=== PATIENT | male | born 1965 | race Caucasian/White ===

== ENCOUNTER → 2022-11-01 08:53 | Outpatient (BNVA) | payer BC, SELFPAY | PROVIDERS: PCP Family Medicine; Visit Provider Family Medicine | DX: E11.9 Type 2 diabetes mellitus without complications (principal); Z12.11 Encounter for screening for malignant neoplasm of colon; Z12.12 Encounter for screening for malignant neoplasm of rectum; Z68.38 Body mass index [BMI] 38.0-38.9, adult; E78.5 Hyperlipidemia, unspecified | CPT/HCPCS: 80053; 80061; 83036; 84439; 84443; 85025 ==

== ENCOUNTER 2023-02-06 05:41 | Day surgery (SDC) | payer BC, SELFPAY ==
[2023-02-04 12:36] VITALS: BMI 38.4
[2023-02-06 06:17] VITALS: BP 122/87; PULSE 93; RESP 16; TEMP 35.9; O2SAT 97; BMI 38.4
[2023-02-06 06:28] LABS: Glucose Point of Care 277 mg/dL (70-110)
--- NOTE | 2023-02-06 06:36 | ANES.PREANE2 ---
Pre-Anesthetic Assessment Height/Weight: Height 1.88 m Weight 135.624 kg Temp Pulse Resp BP Pulse Ox O2 Del Method 96.7 F L 93 16 122/87 97 Room Air 02/06/23 06:17 02/06/23 06:17 02/06/23 06:17 02/06/23 06:17 02/06/23 06:17 02/06/23 06:17 Operation Date: 02/06/23 07:00 Proposed Procedures p Colonoscopy 46445,Z12.11(Not Applicable) - Jesus Hernández DO Familial anesthetic complications: None Was Beta Anny taken within 24 hours: N/A Was Clonidine taken within 24 hours: N/A Last intake: Intake Last Liquid Date 02/05/23 Last Liquid Time 22:00 Last Solid Date 02/04/23 Last Solid Time 18:00 Social No alcohol and No tobacco Exam alert, oriented x 3, clear to auscultation bilaterally and regular rate & rhythm Airway Submandibular: within normal limits Cervical ROM: within normal limits Mallampati: Class I Dentition: full History/ROS No significant complaints Pulmonary None reported CV/HEM Peripheral Vascular Disease None reported Hepatic None reported GI None reported Metabolic Diabetes Mellitus, Hyperlipidemia and Morbid Obesity [facility] [place] None reported Neuropsych Neuropathy (Feet/legs) Anesthetic Plan ASA status: 3 Anesthesia: MAC Risk of > 500 ml blood loss (7ml/kg in children): No Medications/Allergies Home Medications Medication Instructions Recorded Confirmed Last Taken Type anrueost-rx-jxvok 300 mcg-K 60 1 tab PO DAILY 11/01/22 02/06/23 02/05/23 History mcg-lycop 600 mcg-lutein 300 mcg tablet ([facility]) aspirin 81 mg tablet,delayed 81 mg PO DAILY #90 tabs 11/02/22 02/04/23 02/01/23 Rx release (Adult Aspirin Regimen) atorvastatin 20 mg tablet 20 mg PO DAILY #90 tabs 11/02/22 02/06/23 02/05/23 Rx dapagliflozin propanediol 10 mg 10 mg PO DAILY #90 tabs 11/02/22 02/06/23 02/05/23 Rx tablet (Farxiga) flash glucose scanning reader #1 ea 11/02/22 02/04/23 Unknown Rx (FreeStyle Almaz 2 [place]) flash glucose sensor (Club 42cmStyle #1 ea 11/02/22 02/04/23 Unknown Rx Almaz 2 Sensor kit) gemfibrozil 600 mg tablet 600 mg PO BID #90 tabs 11/02/22 02/06/23 02/05/23 Rx metformin 1,000 mg tablet 1,000 mg PO BID #180 tabs 11/02/22 02/06/23 02/05/23 Rx pioglitazone 30 mg tablet 30 mg PO DAILY #90 tabs 11/02/22 02/06/23 02/05/23 Rx sitagliptin phosphate 100 mg 100 mg PO DAILY #90 tabs 11/02/22 02/06/23 02/05/23 Rx tablet (Januvia) glipizide 10 mg tablet 20 mg PO .DAILY IN AM 02/04/23 02/06/23 02/05/23 History glipizide 5 mg tablet 5 mg PO BEDTIME 02/04/23 02/06/23 02/05/23 History Allergies Allergy/AdvReac Type Severity Reaction Status Date / Time azithromycin Allergy Unknown Verified 12/06/22 07:41 bee venom protein (honey bee) Allergy ALGY-Anaphy Verified 02/04/23 12:21 laxis clarithromycin [From Biaxin] Allergy Unknown Verified 12/06/22 07:41 diphenhydramine Allergy Unknown Verified 12/06/22 07:41 [From Benadryl] Penicillins Allergy Unknown Verified 12/06/22 07:41 shell fish Allergy Unknown Uncoded 12/06/22 07:41 PENDING SALE TO [facility] Anesthesia Medical History Bilateral tinnitus Degenerative disc disease Diabetes Hyperlipidemia Neuropathy Surgical History History of knee surgery 1985, right knee Family History Other Hyperlipidemia Denies family history of Diabetes CAD (coronary artery disease) Clotting disorder Dementia Psychiatric illness Chronic kidney disease (CKD) Anesthesia complication Bleeding disorder Lung disease Cancer Hypertension Stroke Social History Smoking and tobacco status: never smoked Alcohol intake: former Substance/Drug Use: never Lives independently: Yes Marital status: Current occupational status: retired Special antonia needs: No Agree to transfusion: Yes Data Anesthesia Cardiac Studies: No Data to Display
--- NOTE | 2023-02-06 06:59 | PM.HP ---
Providers/Chief Complaint Primary Care Provider: Vinod Nelson MD Chief Complaint: Z12.11 History of Present Illness Javed Pradhan is a 57 year old male Here for his first colon cancer screening. He denies any family history of colon cancer, abdominal pain, nausea, emesis, diarrhea, constipation, hematochezia and/or melena Review of Systems General: Reports: 10 or more systems reviewed and unremarkable except in HPI and below Medications/Allergies Home Medications Medication Instructions Recorded Confirmed Last Taken Type podrnrqj-bt-aiyzx 300 mcg-K 60 1 tab PO DAILY 11/01/22 02/06/23 02/05/23 History mcg-lycop 600 mcg-lutein 300 mcg tablet ([facility]) aspirin 81 mg tablet,delayed 81 mg PO DAILY #90 tabs 11/02/22 02/04/23 02/01/23 Rx release (Adult Aspirin Regimen) atorvastatin 20 mg tablet 20 mg PO DAILY #90 tabs 11/02/22 02/06/23 02/05/23 Rx dapagliflozin propanediol 10 mg 10 mg PO DAILY #90 tabs 11/02/22 02/06/23 02/05/23 Rx tablet (Farxiga) flash glucose scanning reader #1 ea 11/02/22 02/04/23 Unknown Rx (FreeStyle Almaz 2 [place]) flash glucose sensor (FreeStyle #1 ea 11/02/22 02/04/23 Unknown Rx Almaz 2 Sensor kit) gemfibrozil 600 mg tablet 600 mg PO BID #90 tabs 11/02/22 02/06/23 02/05/23 Rx metformin 1,000 mg tablet 1,000 mg PO BID #180 tabs 11/02/22 02/06/23 02/05/23 Rx pioglitazone 30 mg tablet 30 mg PO DAILY #90 tabs 11/02/22 02/06/23 02/05/23 Rx sitagliptin phosphate 100 mg 100 mg PO DAILY #90 tabs 11/02/22 02/06/23 02/05/23 Rx tablet (Januvia) glipizide 10 mg tablet 20 mg PO .DAILY IN AM 02/04/23 02/06/23 02/05/23 History glipizide 5 mg tablet 5 mg PO BEDTIME 02/04/23 02/06/23 02/05/23 History Allergies Allergy/AdvReac Type Severity Reaction Status Date / Time azithromycin Allergy Unknown Verified 12/06/22 07:41 bee venom protein (honey bee) Allergy ALGY-Anaphy Verified 02/04/23 12:21 laxis clarithromycin [From Biaxin] Allergy Unknown Verified 12/06/22 07:41 diphenhydramine Allergy Unknown Verified 12/06/22 07:41 [From Benadryl] Penicillins Allergy Unknown Verified 12/06/22 07:41 shell fish Allergy Unknown Uncoded 12/06/22 07:41 PFSH Acute PFSH: Medical History Bilateral tinnitus Degenerative disc disease Diabetes Hyperlipidemia Neuropathy Surgical History History of knee surgery 1985, right knee Family History Other Hyperlipidemia Denies family history of Diabetes CAD (coronary artery disease) Clotting disorder Dementia Psychiatric illness Chronic kidney disease (CKD) Anesthesia complication Bleeding disorder Lung disease Cancer Hypertension Stroke Social History Smoking and tobacco status: never smoked Alcohol intake: former Substance/Drug Use: never Lives independently: Yes Marital status: Current occupational status: retired Special antonia needs: No Agree to transfusion: Yes Vitals/I&O/Wt Last Vital Signs Temp 96.7 F L 02/06/23 06:17 Pulse 93 02/06/23 06:17 Resp 16 02/06/23 06:17 BP 122/87 02/06/23 06:17 Pulse Ox 97 02/06/23 06:17 O2 Del Method Room Air 02/06/23 06:17 Weight last 48 hrs Weight 299 lb Weight 299 lb A&P Assessment and plan (1) Colon cancer screening: Plan Screening colonoscopy The risks and benefits of the procedure, including bleeding, infection, intestinal perforation requiring surgery, missed lesion were explained to the patient. The patient is understanding of the risks and wishes to proceed. Attestations Medical Necessity Statement*: home Coding Level of Care Code Acute Code for Chg Fwd Diagnoses Colon cancer screening Z12.11
[2023-02-06 07:26] VITALS: BP 116/77; PULSE 81; RESP 16; TEMP 36.1; O2SAT 93
[2023-02-06 07:31] VITALS: BP 117/78; PULSE 83; RESP 16; O2SAT 95
[2023-02-06 07:41] VITALS: BP 131/93; PULSE 83; RESP 18; O2SAT 96
--- NOTE | 2023-02-06 07:53 | ANE.PACU2 ---
Inpatient post-anesthesia follow up: Airway intact: Yes Vital signs: Temperature 97.0 F Pulse Rate 83 Respiratory Rate 18 Blood Pressure 131/93 Pulse Oximetry 96 Oxygen Delivery Me thod Room Air Oxygen Flow Rate 3 Fraction of Inspir ed Oxygen Hydration adequate: Yes Nausea and vomiting: No Pain level: Other (none) Mental status: Baseline
[2023-02-06] MEDS: sodium chloride 0.9% 1,000 ML 30 ML IV (07:55)
[2023-02-06 07:58] LABS: Glucose Point of Care 243 mg/dL (70-110)
== END 2023-02-06 08:18 | disposition home or self-care (01) ==
PROVIDERS: PCP Family Medicine; Visit Provider Surgery
PROC: 0DJD8ZZ Inspection of Lower Intestinal Tract, Via Natural or Artificial Opening Endoscopic (ICD-10-PCS; CPT 45378; principal; 2023-02-06 07:00)
DX: Z12.11 Encounter for screening for malignant neoplasm of colon (principal); D12.3 Benign neoplasm of transverse colon; K62.1 Rectal polyp; Z79.82 Long term (current) use of aspirin; Z79.84 Long term (current) use of oral hypoglycemic drugs; E78.5 Hyperlipidemia, unspecified; E66.01 Morbid (severe) obesity due to excess calories; Z68.38 Body mass index [BMI] 38.0-38.9, adult; E11.42 Type 2 diabetes mellitus with diabetic polyneuropathy; M19.90 Unspecified osteoarthritis, unspecified site
CPT/HCPCS: 36416; 45385; 82962; 88305; J2704; J7030

== ENCOUNTER → 2023-05-09 08:30 | Outpatient (BNVA) | payer BC, SELFPAY | PROVIDERS: PCP Family Medicine; Visit Provider Family Medicine | DX: E11.9 Type 2 diabetes mellitus without complications (principal) | CPT/HCPCS: 80053; 83036 ==

== ENCOUNTER → 2023-10-31 08:27 | Outpatient (BNVA) | payer BC, SELFPAY | PROVIDERS: PCP Family Medicine; Visit Provider Family Medicine | DX: E78.2 Mixed hyperlipidemia (principal); E11.9 Type 2 diabetes mellitus without complications | CPT/HCPCS: 80053; 80061; 83036 ==

== ENCOUNTER → 2024-02-07 07:39 | Outpatient (BNVA) | payer BC, SELFPAY | PROVIDERS: PCP Family Medicine; Visit Provider Family Medicine | DX: Z12.5 Encounter for screening for malignant neoplasm of prostate (principal); E11.9 Type 2 diabetes mellitus without complications | CPT/HCPCS: 80053; 83036; 84153 ==

== ENCOUNTER → 2024-06-10 08:04 | Outpatient (BNVA) | payer BC, SELFPAY | PROVIDERS: PCP Family Medicine; Visit Provider Family Medicine | DX: E11.9 Type 2 diabetes mellitus without complications (principal) | CPT/HCPCS: 80053; 80061; 83036; 85025 ==

== ENCOUNTER → 2025-01-06 09:21 | Outpatient (BNVA) | payer BC, SELFPAY | PROVIDERS: PCP Family Medicine; Visit Provider Family Medicine | DX: E11.9 Type 2 diabetes mellitus without complications (principal) | CPT/HCPCS: 80053; 83036 ==

== ENCOUNTER → 2025-05-11 09:10 | Outpatient (BNVA) | payer MEDICARE, BC, SELFPAY | PROVIDERS: PCP Family Medicine; Visit Provider Family Medicine | DX: J45.901 Unspecified asthma with (acute) exacerbation (principal) | CPT/HCPCS: 71046 ==